=== PATIENT | male | born 2000 | race Caucasian/White ===

== ENCOUNTER 2019-04-04 12:48 | Emergency (ER) | payer BC ==
[2019-04-04 13:47] LABS: Hematocrit 45 % (42-52); Hemoglobin 15.2 g/dL (14.0-18.0); Mean Corpuscular HGB Conc 34 g/dL (31-36); Mean Corpuscular Hemoglobin 30 pg (27-31); Mean Corpuscular Volume 88 fL (80-94); Mean Platelet Volume 8.7 fL (7.4-10.4); Platelet Count 176 10^3/uL (150-450); Red Blood Count 5.07 10^6 /uL (4.18-5.48); Red Cell Distribution Width 13 % (10-15); White Blood Count 12.8 10^3/uL (3.5-10.8)
[2019-04-04 14:25] LABS: Albumin 4.7 g/dL (3.2-5.2); Albumin/Globulin Ratio 1.6 (1-3); BUN/Creatinine Ratio 7.3 (8-20); C Reactive Protein 98.02 mg/L (<8.01); Calcium 9.8 mg/dL (8.6-10.3); EGFR African American 122.1 (>60); EGFR Non-African American 100.9 (>60); Globulin 2.9 g/dL (2-4); Potassium 4.5 mmol/L (3.5-5.0); Total Bilirubin 1.6 mg/dL (0.2-1.0); Total Protein 7.6 g/dL (6.4-8.9)
[2019-04-04 14:40] LABS: ABS Lymphocytes 1.3 10^3/ul (1.0-4.8); ABS Monocytes 2.3 10^3/ul (0-0.8); ABS Neutrophils 9.2 10^3/ul (1.5-7.7); Eosinophil % 0.1 %; Lymphocyte % 10.1 %
--- NOTE | 2019-04-04 14:47 | ED ---
Abdominal Pain/Male - HPI Summary HPI Summary: Patient is a 18 y/o M presenting to [facility] with complaints of abdominal pain, fever and HAs since 04/02/19. He reports that he awakes with Sx in the morning. Patient has been taking Advil which breaks his fever. Abdominal pain is characterized as diffuse and sharp. Patient further describes his abdominal pain as "Like I've been stabbed in the stomach or something". He notes that urination aggravates abdominal pain. This past evening, the patient awoke with "brutal" YI and abdominal pain, stating that he felt near syncopal and had blurry vision at the time. Patient was evaluated today, 04/04/19, at [facility]. While she was palpating abdomen at [facility], he reports aggravation of pain and notes that he became diaphoretic. IC was concerned for appendicitis and sent patient to [facility] for evaluation. On triage, pain is rated 4/10. He denies Hx of asthma, thyroid disease, HTN, and diabetes. No allergies reported. Patient has FMHx of cardiac disease. He denies tobacco, alcohol, and substance usage. Friend dropped him off at ED. Home medications reviewed. Home Medications Ibuprofen TAB* [Advil TAB*] 400 mg PO Q6H PRN 04/04/19 [History Confirmed ] Allergies Allergy/AdvReac Type Severity Reaction Status Date / Time No Known Allergies Allergy Verified 04/04/19 12:52 - History of Current Complaint Chief Complaint: EDAbdPain Stated Complaint: FEVER AND ABDOMINAL PAIN PER PT Time Seen by Provider: 04/04/19 14:25 Hx Obtained From: Patient, Other: - [facility] Onset/Duration: Lasting Days, Still Present Timing: Lasting Days Severity Initially: Moderate Severity Currently: Moderate Pain Intensity: 4 Pain Scale Used: 0-10 Numeric Location: Diffuse Radiates: No Character: Sharp Aggravating Factor(s): Other: - palpation, urination Alleviating Factor(s): Nothing Associated Signs And Symptoms: Positive: Fever, Other - YI - Allergies/Home Medications Allergies/Adverse Reactions: Allergies Allergy/AdvReac Type Severity Reaction Status Date / Time No Known Allergies Allergy Verified 04/04/19 12:52 Home Medications: Home Medications Ibuprofen TAB* [Advil TAB*] 400 mg PO Q6H PRN 04/04/19 [History Confirmed ] PMH/Surg Hx/FS Hx/Imm Hx Previously Healthy: Yes Endocrine/Hematology History: Denies: Hx Diabetes, Hx Thyroid Disease Cardiovascular History: Denies: Hx Hypertension Respiratory History: Denies: Hx Asthma - Surgical History Surgical History: None Infectious Disease History: No Infectious Disease History: Denies: Traveled Outside the [place] in Last 30 Days - Family History Known Family History: Positive: Cardiac Disease - Social History Occupation: Student Lives: Dormitory/Roommates Alcohol Use: None Substance Use Type: Reports: None Smoking Status (MU): Never Smoked Tobacco Review of Systems Positive: Fever Positive: Blurred Vision Cardiovascular: Negative Respiratory: Negative Positive: Abdominal Pain Positive: no symptoms reported Skin: Negative Positive: Headache Psychological: Normal All Other Systems Reviewed And Are Negative: Yes Physical Exam - Summary Physical Exam Summary: Appearance: Ill-appearing, moderate pain distress, well-nourished Skin: Warm, color reflects adequate perfusion, dry Head: Normal Head/Face inspection, atraumatic Eyes: Conjunctiva clear ENT: Normal inspection Neck: Supple, no nodes, no JVD Respiratory: Lungs clear, normal breath sounds, no respiratory distress Cardio: RRR, No murmur, pulses normal, brisk capillary refill Abdomen: Soft, RLQ tenderness with guarding, no rebound, no distention, no masses. Bowel sounds: Present Musculoskeletal: Strength Intact/ROM intact, no calf tenderness, no edema. Psychological: Normal Neuro: Alert, muscle tone normal, no focal deficit Triage Information Reviewed: Yes Vital Signs On Initial Exam: Initial Vitals Temp Pulse Resp BP Pulse Ox 97.8 F 83 16 144/97 100 04/04/19 12:49 04/04/19 12:49 04/04/19 12:49 04/04/19 12:49 04/04/19 12:49 Vital Signs Reviewed: Yes Procedures - Sedation Patient Received Moderate/Deep Sedation with Procedure: No Diagnostics - Vital Signs Vital Signs Temp Pulse Resp BP Pulse Ox 04/04/19 12:49 97.8 F 83 16 144/97 100 - Laboratory Lab Results: Lab Results 04/04/19 04/04/19 04/04/19 Range/Units 13:33 13:33 13:33 WBC 12.8 H (3.5-10.8) 10^3/uL RBC 5.07 (4.18-5.48) 10^6 /uL Hgb 15.2 (14.0-18.0) g/dL Hct 45 (42-52) % MCV 88 (80-94) fL MCH 30 (27-31) pg MCHC 34 (31-36) g/dL RDW 13 (10-15) % Plt Count 176 (150-450) 10^3/uL MPV 8.7 (7.4-10.4) fL Neut % (Auto) Pending Lymph % (Auto) Pending [place] % (Auto) Pending Eos % (Auto) Pending Baso % (Auto) Pending Absolute Neuts (auto) Pending Absolute Lymphs (auto) Pending Absolute Monos (auto) Pending Absolute Eos (auto) Pending Absolute Basos (auto) Pending Absolute Nucleated RBC Pending Nucleated RBC % Pending Sodium 138 (135-145) mmol/L Potassium 4.5 (3.5-5.0) mmol/L Chloride 100 L (101-111) mmol/L Carbon Dioxide 29 (22-32) mmol/L Anion Gap 9 (2-11) mmol/L BUN 7 (6-24) mg/dL Creatinine 0.96 (0.67-1.17) mg/dL Est GFR ( Amer) 122.1 (>60) Est GFR (Non-Af Amer) 100.9 (>60) BUN/Creatinine Ratio 7.3 L (8-20) Glucose 90 (70-100) mg/dL Lactic Acid 0.7 (0.5-2.0) mmol/L Calcium 9.8 (8.6-10.3) mg/dL Total Bilirubin 1.60 H (0.2-1.0) mg/dL AST 17 (13-39) U/L ALT 11 (7-52) U/L Alkaline Phosphatase 48 (34-104) U/L C-Reactive Protein 98.02 H (<8.01) mg/L Total Protein 7.6 (6.4-8.9) g/dL Albumin 4.7 (3.2-5.2) g/dL Globulin 2.9 (2-4) g/dL Albumin/Globulin Ratio 1.6 (1-3) Lipase 12 (11.0-82.0) U/L Result Diagrams: 04/04/19 13:33 04/04/19 13:33 Lab Statement: Any lab studies that have been ordered have been reviewed, and results considered in the medical decision making process. - CT CT ABD/PEL CT Interpretation Completed By: Radiologist Summary of CT Findings: IMPRESSION: ACUTE APPENDICITIS WITHOUT LOCULATED FLUID COLLECTION TO SUGGEST ABSCESS. SUBSEGMENTAL CONSOLIDATION OF THE LEFT LOWER LOBE. THIS REPORT WAS REVIEWED BY DR. CARRASQUILLO. Re-Evaluation - Re-Evaluation First Eval Re-Evaluation Time: 17:50 Change: Improved Comment: Discussed care that he discussed with Dr. Hobbs, and [facility]. Pt wishes to pursue care in his hometown. Agrees to first dose of antibiotics in the ED. Pain and vomiting are controlled with ketorolac and zofran IV. Abdominal Pain Male Course/Dx - Course Course Of Treatment: Patient is a 18 y/o M presenting to [facility] with complaints of abdominal pain, fever and HAs since 04/02/19. Patient was evaluated today, , at [facility]. While she was palpating abdomen at [facility], he reports aggravation of pain and notes that he became diaphoretic. IC was concerned for appendicitis and sent patient to [facility] for evaluation. Abdomen: Soft, RLQ tenderness with guarding, no rebound, no distention, no masses. Bloodwork was obtained. Abnormal values include CRP 98.02, WBC 12.8, absolute neuts 9.2, absolute monos 2.3, chloride 100, BUN/creatinine ratio 7.3, total bilirubin 1.6. UA was negative. During ED course, patient received Zofran 4 mg and Toradol [address] ABD/PEL IMPRESSION: ACUTE APPENDICITIS WITHOUT LOCULATED FLUID COLLECTION TO SUGGEST ABSCESS. SUBSEGMENTAL CONSOLIDATION OF THE LEFT LOWER LOBE. 1747 Dr. Hobbs was in ED and had noted patient with appendicitis. Dr. Hobbs discussed plan of care with patient. Patient wants to go home to [place] for treatment. As patient has early appendicitis, this is agreeable. He received Zosyn 3.375 gm in ED and was discharged with a 10 day Augmentin prescription and advised to see a surgeon EMIR, and to go to the closest ED if worse. Strict return precautions were given. - Diagnoses Provider Diagnoses: Acute appendicitis - Provider Notifications Discussed Care Of Patient With: Brenda Hobbs Time Discussed With Above Provider: 17:48 Instructed by Provider To: Other - 1747 Dr. Hobbs was in ED and had noted patient with appendicitis. Dr. Hobbs discussed plan of care with patient. Patient wants to go home to [place] for treatment. As patient has early appendicitis , this is agreeable. He received piperacillin sod/tazobactam sod 3.375 gm in sodium chloride 100 mls @ 200 mls/hr IVPB in ED and was discharged with Augmentin prescription. - Critical Care Time Critical Care Time: 30-74 min - 30 minutes of CCT Discharge ED - Sign-Out/Discharge Documenting (check all that apply): Patient Departure - discharge - Discharge Plan Condition: Stable Disposition: HOME Prescriptions: Amoxicillin/Clavulanate TAB* [Augmentin TAB 875*] 875 mg PO BID #20 tab Patient Education Materials: Acute Abdominal Pain (ED) Referrals: [facility] [Primary Care Provider] - If Needed Additional Instructions: We have given you a copy of your CT report and your xray disc showing that you have acute appendicitis without an abscess or perforation. You and Dr. Hobbs and [facility] discussed options for care, and you decided to have one dose of IV antibiotics (Zosyn 3.375gm IV) in the ED now, to have a prescription for Augmentin, and then to travel to [place] tomorrow, your home, and to present to an emergency department for further care. Dr. Hobbs and Dr. Carrasquillo discussed strict return precautions for returning to an emergency department as an emergency, even before you reach [place]. You were able to tolerate food and drink while you were in the ER. Return to the ER if you have new or worsening symptoms. - Billing Disposition and Condition Condition: STABLE Disposition: Home - Attestation Statements Document Initiated by Hilaria: Yes Documenting Scribe: YARELY SINGH Provider For Whom Hilaria is Documenting (Include Credential): SHANNAN CARRASQUILLO MD Scribe Attestation: YARELY Singletary scribed for SHANNAN CARRASQUILLO MD on 04/20/19 at 2020. Scribe Documentation Reviewed: Yes Provider Attestation: The documentation as recorded by the YARELY chavarria accurately reflects the service I personally performed and the decisions made by me, SHANNAN CARRASQUILLO MD Status of Scribe Document: Viewed
[2019-04-04 15:13] LABS: Urine Appearance Clear; Urine Bilirubin Negative (Negative); Urine Blood Negative (Negative); Urine Color Yellow; Urine Glucose Negative (Negative); Urine Ketones Negative (Negative); Urine Nitrite Negative (Negative); Urine Protein Negative (Negative); Urine Specific Gravity 1.005 (1.010-1.030); Urine Urobilinogen Negative (Negative)
[2019-04-04] MEDS ORDERED: Iohexol 300* (CONTRAST) 10 ML SDV IV ONE (16:16)
[2019-04-04] MEDS ORDERED: Ketorolac INJ* 30 MG/ML 1 ML VIAL IV ONE (16:37)
[2019-04-04] MEDS ORDERED: Ondansetron INJ* 2 MG/ML VIAL IV ONE (16:38)
[2019-04-04] MEDS ORDERED: Piperacillin/Tazobac ADVAN(*) 3.375 GM in NS 0.9% 100 ML* 100 ML IVPB ONE (17:55)
--- NOTE | 2019-04-04 18:02 | CONSULT ---
Consult Consult: Consultation: General Surgery Diagnosis: Acute Appendicitis Chief Complaint: RLQ pain x 2 days HPI: The patient is a pleasant 18 yo male, student at [employer] who reports generalized abdominal pain starting on Wednesday with nausea, no vomiting, feverish but no temp reading, went to clinic at school and was refered here to ED. His pain is now localized to the RLQ, WBC at 12.8, CT findings of acute appendicitis without abcess. Pt reports a similar episode last july which lasted a few days and cleared on its own PMH: Denies PSH: Denies SOCIAL: TOB denies ETOH denies DRUGS denies IVDA denies FAMILY HISTORY: non contributory, denies any medical history ALLERGIES: NKDA MEDICATIONS: advil ROS: other than per HPI negative 14 point ROS PHYSICAL EXAM: VS: Vital Signs Temp Pulse Resp BP Pulse Ox 97.8 F 83 16 144/97 100 04/04/19 12:49 04/04/19 12:49 04/04/19 12:49 04/04/19 12:49 04/04/19 12:49 HEENT: NCAT, EOM intact, neck supple CHEST: CTA B/L CVS: RRR ABD: Soft, ND, + tenderness RLQ to palpation - Billingsley's M/S: Full ROM, Calves soft B/L NEURO:AxO x 3 LABS: Abnormal Lab Results 04/04/19 04/04/19 04/04/19 13:33 13:33 13:33 WBC 12.8 H RBC 5.07 Hgb 15.2 Hct 45 MCV 88 MCH 30 MCHC 34 RDW 13 Plt Count 176 MPV 8.7 Neut % (Auto) 71.4 Lymph % (Auto) 10.1 [place] % (Auto) 18.1 Eos % (Auto) 0.1 Baso % (Auto) 0.3 Absolute Neuts (auto) 9.2 H Absolute Lymphs (auto) 1.3 Absolute Monos (auto) 2.3 H Absolute Eos (auto) 0.0 Absolute Basos (auto) 0.0 Absolute Nucleated RBC 0.0 Nucleated RBC % 0.0 Sodium 138 Potassium 4.5 Chloride 100 L Carbon Dioxide 29 Anion Gap 9 BUN 7 Creatinine 0.96 Est GFR ( Amer) 122.1 Est GFR (Non-Af Amer) 100.9 BUN/Creatinine Ratio 7.3 L Glucose 90 Lactic Acid 0.7 Calcium 9.8 Total Bilirubin 1.60 H AST 17 ALT 11 Alkaline Phosphatase 48 C-Reactive Protein 98.02 H Total Protein 7.6 Albumin 4.7 Globulin 2.9 Albumin/Globulin Ratio 1.6 Lipase 12 Urine Color Urine Appearance Urine pH Ur Specific [place] Urine Protein Urine Ketones Urine Blood Urine Nitrate Urine Bilirubin Urine Urobilinogen Ur Leukocyte Esterase Urine Glucose 04/04/19 14:44 WBC RBC Hgb Hct MCV MCH MCHC RDW Plt Count MPV Neut % (Auto) Lymph % (Auto) [place] % (Auto) Eos % (Auto) Baso % (Auto) Absolute Neuts (auto) Absolute Lymphs (auto) Absolute Monos (auto) Absolute Eos (auto) Absolute Basos (auto) Absolute Nucleated RBC Nucleated RBC % Sodium Potassium Chloride Carbon Dioxide Anion Gap BUN Creatinine Est GFR ( Amer) Est GFR (Non-Af Amer) BUN/Creatinine Ratio Glucose Lactic Acid Calcium Total Bilirubin AST ALT Alkaline Phosphatase C-Reactive Protein Total Protein Albumin Globulin Albumin/Globulin Ratio Lipase Urine Color Yellow Urine Appearance Clear Urine pH 6.0 Ur Specific [place] 1.005 L Urine Protein Negative Urine Ketones Negative Urine Blood Negative Urine Nitrate Negative Urine Bilirubin Negative Urine Urobilinogen Negative Ur Leukocyte Esterase Negative Urine Glucose Negative ASSESSMENT: 18 yo male with above history, WBC and CT findings consistent with early acute appendicitis. PLAN: The patient reports that he is on break from school starting tomorrow, and would like to know if he can go home to [place] and if needed be treated there. He was offered surgery here, this evening, vs antibiotics, observation and being seen at hospital near home. He has chosen to do that. A dose of IV Zosyn will be given here, a script for PO Augmentin for 1 week will be given along with a CD copy of his CT scan. we spoke at length of the importance of any change in his symptoms, worsening pain, fever, vomiting, in which case he must return here to ED, or to the ED at /near home. We stressed the importance of any worsening of his symptoms and the need then for a change to operative management from antibiotics and observation He agrees to this. he will be given something to eat prior to d/c to be sure he can tolerate it. This was discussed with the patient by Dr Hobbs and myself, and was all relayed to Dr Beauchamp by Dr Hobbs. All the patient's questions were answered. A total of 45 minutes was spent on this consultation.
[2019-04-04 18:46] VITALS: BP 125/77
--- NOTE | 2019-04-04 23:25 | PN ---
PROGRESS NOTE: DATE OF SERVICE: 04/04/19 HISTORY OF PRESENT ILLNESS: Jf Byers is a very pleasant healthy 18-year- old gentleman with no significant past medical history, who presented to the emergency room with periumbilical radiating to right lower quadrant abdominal pain that began on Wednesday. Please see full dictated complication report by [facility]. Briefly, the patient says that he was in his normal state of health and Wednesday he started having some mild right lower abdominal pain. He said, however, it was not debilitating. He was able to still continue eating and drinking. He was able to go to classes. He had some nausea but no emesis. Given that the pain persisted, he went to the [facility] and they sent him to the emergency room for evaluation. Currently, he says that he feels really rather well. He also feels like he can drink something and has very mild pain. He does feel little bit hot though. In the emergency room, the patient's vital signs with following: His temperature is 97.8, his pulse is 83, respiratory rate is 16, and he is satting 100% O2 on room air. His labs showed white blood cell count 12.8, hemoglobin 15.2, hematocrit was 45, and platelet count was 176. His C- reactive protein was 98. He did have an abdominal CT scan that showed an acute appendicitis without loculated fluid collections to suggest abscess. There is also subsegmental consolidation of left lower lobe. We have consulted regarding the acute appendicitis. I discussed with the patient that his options were proceeding to the operating room for laparoscopic appendectomy versus IV and oral antibiotics. The patient is from [place] and he is about to start his 1 week school break. He strongly wished to leave the emergency room as he was planning on returning home tomorrow. He says that he did not wish to have surgery here and he wanted to actually go home to have surgery. I discussed with him at great length the risks, benefits, and alternatives of his decision. I did discuss that he should return to the emergency room for fever, chills, nausea, vomiting, worsening abdominal pain. He was also considering to driving himself home to [place] tomorrow. I did advise him that he should not drive himself home and that he should have someone else drive or have his parents come pick him up. He understands all these things. I discussed this with the emergency room physician, Dr. Beauchamp. I recommended that he receive IV antibiotics before leaving and a course of oral Augmentin. He also should be evaluated for consolidation of his left lower lobe. He should be given something to eat and drink, if he can tolerate this, then it would be reasonable to allow him to leave the emergency room with a course of oral antibiotics and return home for possible surgery. He should also obtain a copy of the CT scan that he had done today, so that it does not have to be repeated. He again understands all the risks of leaving the emergency room and he agrees. [id number]/[facility] #: [id number] ANTHONY
== END 2019-04-04 18:45 | disposition home or self-care (01) ==
LOC: ED 12:48
DX: K35.80 Unspecified acute appendicitis (principal); R51 Headache; R50.9 Fever, unspecified
CPT/HCPCS: 36415; 74177; 80053; 81003; 83605; 83690; 85025; 86140; 96374; 96375; 99282; J1885; J2405; J2543; Q9967